=== PATIENT | male | born 1960 | race Two or more races ===

== ENCOUNTER → 2022-11-09 | Day surgery (SDC) | payer MEDICAID ==
[~2022-11-09] VITALS: Ht 185.4 cm; Wt 102.1 kg
[~2022-11-09] MED LIST: ATOR10TA PO; CHOL100055 PO; CIPROFLOXACIN 400MG/200ML 200 ML IV ONE; CYAN1TAB14 PO; DexAMETHasone SOD PHOS 10MG/1ML VIAL INJ ONE; FLUMAZENIL 0.1 MG/ML INJ 10ML MDV IV PRN; GLYCOPYRROLATE 0.2 MG/ML 1ML VIAL ONE; HYDROmorphone HCL 2 MG/ML VL/or syr IV PRN; KETAMINE 50mg/ML 10ml Vial (500mg/10ml) IV ONE; KETOROLAC TROMETH 30 MG/ML 1ML VIAL ONE; LABETALOL HCL 5 MG/ML 4ML SYRINGE IV PRN; LEVO175T2 PO; LIDOCAINE 2% (LOCAL ANESTH.) PF 5ml SDV ONE; NALOXONE HCL 0.4 MG/ML VIAL IV PRN; ONDANSETRON HCL 4 MG/2 ML VIAL IV PRN; ONDANSETRON HCL 4 MG/2 ML VIAL ONE; PROPOFOL 10 MG/ML 20 ML IV ONE; ZINC50TA7 PO; ceFAZolin 1GM/50ML 0 ML IV ONE; ePHEDrine SULFATE 50 MG/ML AMP IV PRN; fentaNYL CITRATE 100 MCG/2 ML VL IV PRN; hydrALAZINE HCL 20 MG/ML VL IV PRN
[2022-11-09 07:48] VITALS: BP 147/93
== END | disposition home or self-care (01) ==
LOC: SUR 07:23
PROVIDERS: ATTEND Urology
DX: N35.811 Other urethral stricture, male, meatal (principal); E03.9 Hypothyroidism, unspecified; E78.5 Hyperlipidemia, unspecified; I49.9 Cardiac arrhythmia, unspecified; F17.210 Nicotine dependence, cigarettes, uncomplicated; Z79.899 Other long term (current) drug therapy; Z79.890 Hormone replacement therapy; Z20.822 Contact with and (suspected) exposure to COVID-19
CPT/HCPCS: 52276; J0744; J1100; J1885; J2001; J2405; J2704; U0003; J0690